=== PATIENT | male | born 1980 | race Hispanic/Latino ===

== ENCOUNTER 2018-09-28 09:07 | Day surgery (SDC) | payer BC ==
[2018-09-28 09:38] VITALS: BMI 22.4
[2018-09-28] MEDS ORDERED: Propofol 10 mg/ml Inj (20 ML) ONE ×2 (10:01)
[2018-09-28] MEDS ORDERED: Midazolam 2 MG/2 ML VIAL ONE (10:02)
--- NOTE | 2018-09-28 10:06 | CP.SDSHP ---
Same Day Surgery H & P - History Proposed Procedure: EGD/colonoscopy Pre-Op Diagnosis: abdominal pain, change in bowel habits, blood in stool - Allergies Allergies: Allergies Penicillins Allergy (Intermediate, Verified 09/28/18 09:37) RASH - Physical Exam General Appearance: NAD Mental Status: Alert & Oriented x3 Neuro: WNL Heart: WNL Lungs: WNL GI: WNL - {Optional Preform as Required} Abdomen: WNL - Impression Pt. Evaluated Today:Candidate for Anesthesia & Procedure: Yes - Date & Time Date: 09/28/18 Time: 10:06 Short Stay Discharge - Short Stay Discharge Admitting Diagnosis/Reason for Visit: LEFT UPPER QUADRANT PAIN Disposition: HOME/ ROUTINE
[2018-09-28 10:08] VITALS: O2SAT 100
[2018-09-28 11:20] VITALS: TEMP 98
[2018-09-28 11:21] VITALS: PULSE 66
[2018-09-28 11:27] VITALS: BP 115/73; RESP 15
== END 2018-09-28 11:50 | disposition home or self-care (01) ==
LOC: C.ENDO 09:07
PROVIDERS: ATTEND Internal Medicine Gastroenterology
DX: K29.50 Unspecified chronic gastritis without bleeding (principal); K64.1 Second degree hemorrhoids; K62.5 Hemorrhage of anus and rectum; R10.12 Left upper quadrant pain; R19.4 Change in bowel habit; K44.9 Diaphragmatic hernia without obstruction or gangrene
CPT/HCPCS: 43239; 45380; 88305; 88313; 88342; J2001; J2250; J2704; J3010; J7040